=== PATIENT | female | born 1985 | race Caucasian/White ===

== ENCOUNTER 2018-01-28 15:00 | Emergency (ER) | payer BC ==
[2018-01-28] MEDS: ACETAMINOPHEN 500 MG TAB PO (16:33)
[2018-01-28] MEDS: HYDROCODONE/APAP (5/325) TAB PO (16:33)
[2018-01-28] MEDS: CEFTRIAXONE 1 GM INJ IM (16:42)
[2018-01-28] MEDS: LIDOCAINE 1% (MPF) 5 ML VIAL SC (16:43)
[2018-01-28] MEDS: LIDOCAINE 1% (MDV) 20 ML INJ SC (16:43)
== END 2018-01-28 17:03 | disposition home or self-care (01) ==
LOC: FTE 15:00
DX: L05.01 Pilonidal cyst with abscess (principal)
CPT/HCPCS: 96372; 99284-25

== ENCOUNTER 2018-01-31 08:19 | Emergency (ER) | payer BC ==
[2018-01-31] MEDS: LIDOCAINE 1% (MPF) 5 ML VIAL INJ (08:56)
== END 2018-01-31 09:33 | disposition home or self-care (01) ==
LOC: FTE 08:19
DX: L05.01 Pilonidal cyst with abscess (principal)
CPT/HCPCS: 10080; 99283-25

== ENCOUNTER 2018-04-16 14:39 | Emergency (ER) | payer BC ==
[2018-04-16 15:09] LABS: ADD MAN DIFF? NO
[2018-04-16 15:11] LABS: WHITE BLOOD COUNT 8.7 10^3/ul (4.8-10.8)
[2018-04-16 15:11] LABS: BASOPHIL # 0.1 10^3/ul (0.0-0.1); BASOPHILS % 0.6 % (0.0-2.0); EOSINOPHILS # 0.2 10^3/ul (0.0-0.5); EOSINOPHILS % 1.9 % (0.0-7.0); HEMATOCRIT 45.1 % (37.0-47.0); HEMOGLOBIN 14.7 g/dl (12.0-16.0); LYMPHOCYTES # 2.8 10^3/ul (0.8-2.9); MEAN CORPUSCULAR HEMOGLOBIN 26.6 pg (29.0-33.0); MEAN CORPUSCULAR HGB CONC 32.6 g/dl (32.0-37.0); MEAN CORPUSCULAR VOLUME 81.6 fl (82.0-101.0); MONOCYTE # 0.5 10^3/ul (0.3-0.9); MONOCYTES % 6.2 % (0.0-11.0); NEUTROPHIL # 5.1 10^3/ul (1.6-7.5); PLATELET COUNT 313 10^3/UL (140-415); RED BLOOD COUNT 5.53 10^6/ul (4.20-5.40); RED CELL DISTRIBUTION WIDTH 13.3 % (11.5-14.5)
[2018-04-16] MEDS: ACETAMINOPHEN 500 MG TAB PO (15:13)
[2018-04-16 15:17] LABS: URINE BLOOD (Dip) POC 1+ (NEGATIVE); URINE GLUCOSE (Dip) POC Negative (NEGATIVE); URINE KETONES (Dip) POC 1+ (NEGATIVE); URINE LEUKOCYTE EST (Dip) POC Negative (NEGATIVE); URINE NITRITE (Dip) POC Negative (NEGATIVE); URINE TOTAL PROTEIN POC 2+ (NEGATIVE)
[2018-04-16 15:29] LABS: ANION GAP 13 (5-13); BLOOD UREA NITROGEN 17 mg/dl (7-20); CALCIUM 9.9 mg/dl (8.4-10.2); CARBON DIOXIDE 25 mmol/L (21-31); CHLORIDE 104 mmol/L (97-110); CREATININE 0.79 mg/dl (0.44-1.00); Estimated GFR > 60 mL/min (>60); GLUCOSE 108 mg/dl (70-220); POTASSIUM 3.8 mmol/L (3.5-5.1); SODIUM 142 mmol/L (135-144)
[2018-04-16 15:30] LABS: INR 0.94; PROTIME 12.7 Sec (11.9-14.9)
[2018-04-16 15:31] LABS: PARTIAL THROMBOPLASTIN TIME 30.9 Sec (23.0-35.0)
[2018-04-16] MEDS ORDERED: KETOROLAC 30 MG INJ (17:56)
[2018-04-16] MEDS: KETOROLAC 15 MG INJ IV (18:01)
== END 2018-04-16 18:13 | disposition home or self-care (01) ==
LOC: E/R 14:39
DX: G51.0 Bell's palsy (principal); R20.0 Anesthesia of skin; R40.2252 Coma scale, best verbal response, oriented, at arrival to emergency department; R40.2362 Coma scale, best motor response, obeys commands, at arrival to emergency department; R40.2142 Coma scale, eyes open, spontaneous, at arrival to emergency department
CPT/HCPCS: 36415; 70450; 70551; 80048; 81003; 81025; 82962; 85025; 85610; 85730; 93005; 96374; 99285-25

== ENCOUNTER 2018-04-17 06:24 | Emergency (ER) | payer BC ==
[2018-04-17] MEDS: predniSONE 20 MG TAB PO (06:52)
[2018-04-17] MEDS: ALBUTEROL 0.083% (NEB) 2.5 MG/3 ML AMP NEB (07:02)
[2018-04-17 07:08] LABS: ADD MAN DIFF? NO
[2018-04-17 07:09] LABS: WHITE BLOOD COUNT 7.8 10^3/ul (4.8-10.8)
[2018-04-17 07:09] LABS: BASOPHILS % 0.5 % (0.0-2.0); EOSINOPHILS # 0.2 10^3/ul (0.0-0.5); EOSINOPHILS % 3.1 % (0.0-7.0); HEMATOCRIT 41.5 % (37.0-47.0); HEMOGLOBIN 13.4 g/dl (12.0-16.0); LYMPHOCYTES # 2.9 10^3/ul (0.8-2.9); LYMPHOCYTES % 37.9 % (15.0-51.0); MEAN CORPUSCULAR HEMOGLOBIN 26.7 pg (29.0-33.0); MEAN CORPUSCULAR HGB CONC 32.3 g/dl (32.0-37.0); MEAN CORPUSCULAR VOLUME 82.8 fl (82.0-101.0); MEAN PLATELET VOLUME 11.1 fl (7.4-10.4); MONOCYTE # 0.6 10^3/ul (0.3-0.9); MONOCYTES % 7.7 % (0.0-11.0); NEUTROPHIL # 3.9 10^3/ul (1.6-7.5); NEUTROPHILS % 50.5 % (39.0-77.0); PLATELET COUNT 283 10^3/UL (140-415); RED BLOOD COUNT 5.01 10^6/ul (4.20-5.40); RED CELL DISTRIBUTION WIDTH 13.4 % (11.5-14.5)
[2018-04-17 07:40] LABS: TROPONIN-I < 0.012 ng/ml (0.000-0.120)
[2018-04-17 08:21] LABS: ANION GAP 16 (5-13); BLOOD UREA NITROGEN 19 mg/dl (7-20); CALCIUM 9.1 mg/dl (8.4-10.2); CARBON DIOXIDE 23 mmol/L (21-31); CHLORIDE 104 mmol/L (97-110); CREATININE 0.75 mg/dl (0.44-1.00); Estimated GFR > 60 mL/min (>60); GLUCOSE 115 mg/dl (70-220); POTASSIUM 3.7 mmol/L (3.5-5.1); SODIUM 143 mmol/L (135-144)
== END 2018-04-17 08:36 | disposition home or self-care (01) ==
LOC: FTE 06:24
DX: J06.9 Acute upper respiratory infection, unspecified (principal); G51.0 Bell's palsy; J45.901 Unspecified asthma with (acute) exacerbation; R05 Cough
CPT/HCPCS: 71045; 80048; 84484; 85025; 93005; 94664; 99285-25